=== PATIENT | male | born 1945 | race Hispanic/Latino ===

== ENCOUNTER → 2017-10-24 | Outpatient (CLI) | payer OTHER ==
[~2017-10-24] MED LIST: ALLO300T2 PO; AMLO5TAB2 PO; ASPI-555 PO; CLOP75TA32 PO; LISI40TA4 PO; METO-391 PO; NITR0.4T50 PO; ROSU40TA20 PO
== END | disposition home or self-care (01) ==
LOC: SHCH 09:50
PROVIDERS: ATTEND Internal Medicine Cardiovascular Disease
DX: R09.89 Other specified symptoms and signs involving the circulatory and respiratory systems (principal)
CPT/HCPCS: 93880

== ENCOUNTER → 2017-12-15 | Outpatient (CLI) | payer OTHER | END | disposition home or self-care (01) | LOC: SHCH 11:14 | PROVIDERS: ATTEND Internal Medicine Cardiovascular Disease | DX: I34.0 Nonrheumatic mitral (valve) insufficiency (principal); I35.8 Other nonrheumatic aortic valve disorders; Z95.0 Presence of cardiac pacemaker | CPT/HCPCS: 93306 ==

== ENCOUNTER → 2017-12-22 | Outpatient (CLI) | payer OTHER ==
[~2017-12-22] MED LIST changes: +REGADENOSON 0.4 MG/5 ML PF SYG IVP SCH
== END | disposition home or self-care (01) ==
LOC: SHCH 08:04
PROVIDERS: ATTEND Internal Medicine Cardiovascular Disease
DX: I25.10 Atherosclerotic heart disease of native coronary artery without angina pectoris (principal)
CPT/HCPCS: 78452; 93017; 96374; A9500 ×2; J2785

== ENCOUNTER 2017-12-26 15:37 | Observation (INO) | payer OTHER ==
[~2017-12-26] VITALS: Ht 177.8 cm; Wt 93.6 kg
[2017-12-26 16:11] LABS: BASOPHILS % (AUTO) 0.8 % (0.0-5.0); EOSINOPHILS % (AUTO) 2.8 % (0.0-8.0); HEMATOCRIT 38.3 % (42-54); LYMPHOCYTES % (AUTO) 19.8 % (21.0-51.0); MEAN CORPUSCULAR HEMOGLOBIN 31.9 pg (27.0-33.0); MEAN CORPUSCULAR HGB CONC 34.1 g/dL (32.0-36.0); MEAN CORPUSCULAR VOLUME 93.4 fL (79-99); MONOCYTES % (AUTO) 6.7 % (3.0-13.0); NEUTROPHILS % (AUTO) 69.9 % (40.0-77.0); NUCLEATED RED BLOOD CELLS 0.1 % (0.0-0.19); PLATELET COUNT (AUTO) 268 K/uL (130-400); RED CELL DISTRIBUTION WIDTH 13.7 % (11.0-15.5)
[2017-12-26 16:24] LABS: CREATININE 2.7 mg/dL (0.5-1.5)
[2017-12-26 16:27] LABS: INR 0.98 (0.85-1.15); PROTHROMBIN TIME 10.3 SEC (9.6-11.6)
[2017-12-26 16:38] LABS: ALBUMIN 3.7 g/dL (3.5-5.0); BILIRUBIN,TOTAL 0.2 mg/dL (0.2-1.0); CREATINE KINASE MB 1.1 ng/mL (0.5-3.6); TOTAL PROTEIN, SERUM 6.6 g/dL (6.0-8.3)
[2017-12-27] VITALS (13 sets, daily range): BP systolic 108–127; BP diastolic 62–75
[2017-12-27] MEDS ORDERED: ASPIRIN 81MG TAB.CHEW ONE (08:44)
[2017-12-27] MEDS ORDERED: CLOPIDOGREL BISULFATE 75 MG TAB ONE (08:44)
[2017-12-27] MEDS ORDERED: AMLODIPINE BESYLATE 5 MG TAB PO ONE (08:44)
[2017-12-27] MEDS ORDERED: ATORVASTATIN CALCIUM 10 MG TABLET ONE (08:44)
[2017-12-27] MEDS ORDERED: SODIUM CHLORIDE 0.9% 1000ML 1,000 ML IV ONE (08:44)
[2017-12-27] MEDS ORDERED: SODIUM BICARB 50MEQ 50ML VIAL ONE (08:59)
[2017-12-27] MEDS ORDERED: NITROGLYCERIN 5 MG/ML 10 ML VIAL IV ONE (08:59)
[2017-12-27] MEDS ORDERED: IOHEXOL-350 50ML VIAL IV ONE (08:59)
[2017-12-27] MEDS ORDERED: HEPARIN SODIUM 1000UNIT/ML 10ML VIAL ONE (08:59)
[2017-12-27] MEDS ORDERED: IOHEXOL 350 MG/ML 100ML INFUS..BTL IV ONE (09:00)
[2017-12-27] MEDS ORDERED: AMLODIPINE BESYLATE 5 MG TAB PO SCH (09:00)
[2017-12-27] MEDS ORDERED: TOPROL 50 MG PO SCH (09:00)
[2017-12-27] MEDS: SODIUM CHLORIDE 0.9% 1000ML 1,000 ML IV SCH ×5 (09:00→22:20)
[2017-12-27] MEDS ORDERED: LIDOCAINE HCL-MPF 2% 5ML VIAL ONE ×2 (09:03→09:04)
[2017-12-27] MEDS: ASPIRIN 81MG TAB.CHEW PO SCH (09:21)
[2017-12-27] MEDS: ALLOPURINOL 300 MG TABLET PO SCH (09:22)
[2017-12-27] MEDS: CLOPIDOGREL BISULFATE 75 MG TAB PO SCH (09:22)
[2017-12-27] MEDS ORDERED: ACETAMINOPHEN-CODEINE 300/30MG TAB PO PRN ×2 (10:45)
[2017-12-27] MEDS: METOPROLOL TARTRATE 50 MG TAB PO SCH ×3 (10:45→17:00)
[2017-12-27] MEDS ORDERED: CLONIDINE HCL 0.1 MG TABLET PO PRN (10:45)
[2017-12-27] MEDS ORDERED: ASPI-555 PO (16:20)
[2017-12-27] MEDS ORDERED: NITR0.4T50 PO (16:20)
[2017-12-27] MEDS ORDERED: METO-391 PO (16:20)
[2017-12-27] MEDS ORDERED: CLOP75TA32 PO (16:20)
[2017-12-27] MEDS ORDERED: LISI40TA4 PO (16:20)
[2017-12-27] MEDS ORDERED: ROSU40TA28 PO (16:20)
[2017-12-27] MEDS ORDERED: AMLO5TAB2 PO (16:20)
[2017-12-27] MEDS ORDERED: ALLO300T2 PO (16:20)
[2017-12-27] MEDS ORDERED: ATORVASTATIN CALCIUM 40 MG TABLET PO SCH (21:00)
[2017-12-28 04:00] VITALS: BP 121/73
[2017-12-28 04:28] LABS: HEMATOCRIT 33.9 % (42-54); MEAN CORPUSCULAR HEMOGLOBIN 33.3 pg (27.0-33.0); MEAN CORPUSCULAR HGB CONC 35.7 g/dL (32.0-36.0); MEAN CORPUSCULAR VOLUME 93.3 fL (79-99); NUCLEATED RED BLOOD CELLS 0.1 % (0.0-0.19); PLATELET COUNT (AUTO) 227 K/uL (130-400); RED BLOOD CELL COUNT(AUTO) 3.63 MIL/uL (4.50-6.20); RED CELL DISTRIBUTION WIDTH 13.6 % (11.0-15.5); WHITE BLOOD COUNT (AUTO) 7.5 K/uL (4.8-10.8)
[2017-12-28 05:07] LABS: POTASSIUM 4.1 mmol/L (3.5-5.1)
[2017-12-28 07:00] VITALS: BP 116/72
[2017-12-28] MEDS ORDERED: AMLODIPINE BESYLATE 5 MG TAB PO SCH (09:00)
[2017-12-28] MEDS: ASPIRIN 81MG TAB.CHEW PO SCH (09:39)
[2017-12-28] MEDS: METOPROLOL TARTRATE 50 MG TAB PO SCH (09:39)
[2017-12-28] MEDS: CLOPIDOGREL BISULFATE 75 MG TAB PO SCH (09:39)
[2017-12-28] MEDS: ALLOPURINOL 300 MG TABLET PO SCH (09:39)
[2017-12-28] MEDS: SODIUM CHLORIDE 0.9% 1000ML 1,000 ML IV SCH (09:40)
[2017-12-28 11:00] VITALS: BP 115/77
== END 2017-12-28 13:35 | disposition home or self-care (01) ==
LOC: EDH 15:37 → EDHIP 19:07 → 2AH 12-27 11:16
PROVIDERS: ADMIT Internal Medicine; ATTEND Internal Medicine
DX: I25.110 Atherosclerotic heart disease of native coronary artery with unstable angina pectoris (principal); I25.2 Old myocardial infarction; I45.9 Conduction disorder, unspecified; I12.9 Hypertensive chronic kidney disease with stage 1 through stage 4 chronic kidney disease, or unspecified chronic kidney disease; N18.4 Chronic kidney disease, stage 4 (severe); E78.5 Hyperlipidemia, unspecified; Z95.0 Presence of cardiac pacemaker
CPT/HCPCS: 36415 ×3; 80048; 80053; 80061; 82550; 82553; 84484; 85025; 85027; 85347 ×2; 85610; 85730; 93005 ×2; 93458; 99285; C1725; C1760; C1769; C1874 ×2; C1887; C1894; C9600; G0378 ×42; J1644 ×2; J3490 ×4; J7030 ×2; Q9965; Q9967 ×2